=== PATIENT | female | born 1935 | race Asian ===

== ENCOUNTER 2016-06-30 12:27 | Inpatient (IN) | payer MEDICARE ==
[~2016-06-30] VITALS: Ht 154.9 cm; Wt 90.7 kg
[~2016-06-30 12:27] MED LIST: NORCO 5-325 TA1 EACH ORAL
[2016-06-30 12:30] VITALS: BP 187/72
[2016-06-30] MEDS ORDERED: LORazepam Inj 2mg/ml 1ml IV ONE (12:45)
[2016-06-30] MEDS ORDERED: Famotidine 20 MG/ 2ML VIAL IVP ONE (12:45)
[2016-06-30 13:02] LABS: BASOPHILS % (AUTO) 0.8 % (0.0-2.0); EOSINOPHILS % (AUTO) 1.8 % (0.0-3.0); LYMPHOCYTES % (AUTO) 29.7 % (20.0-45.0); MEAN CORPUSCULAR HGB CONC 32.2 G/DL (32.0-36.0); MEAN CORPUSCULAR VOLUME 96 FL (80-99); MEAN PLATELET VOLUME 6.9 FL (6.5-10.1); MONOCYTES % (AUTO) 6.8 % (1.0-10.0); NEUTROPHILS % (AUTO) 60.9 % (45.0-75.0); PLATELET COUNT 174 K/UL (150-450); RED BLOOD COUNT 4.23 M/UL (4.20-5.40); RED CELL DISTRIBUTION WIDTH 12.1 % (11.6-14.8); WHITE BLOOD COUNT 8.5 K/UL (4.8-10.8)
[2016-06-30 13:16] LABS: ALANINE AMINOTRANSFERASE 24 U/L (3-33); ALBUMIN/GLOBULIN RATIO 1.8 (1.0-2.7); ANION GAP 15 (5-15); ASPARTATE AMINO TRANSFERASE 34 U/L (5-40); CALCIUM 9.7 mg/dL (8.6-10.2); CARBON DIOXIDE 27 mEQ/L (20-30); CHLORIDE 99 mEQ/L (98-107); CREATININE 1.1 mg/dL (0.5-0.9); HEMOLYSIS 19; POTASSIUM 3.7 mEQ/L (3.4-4.9); SODIUM 141 mEQ/L (135-145); TOTAL PROTEIN 6.8 g/dL (6.6-8.7); TROPONIN I < 0.30 ng/mL (<=0.30)
[2016-06-30 13:17] LABS: INR 0.9 (0.9-1.1); PROTHROMBIN TIME 9.5 SEC (9.30-11.50)
[2016-06-30 13:30] VITALS: BP 170/76
--- NOTE | 2016-06-30 14:00 | Diagnostic Imaging Report ---
Indication: Headache Technique: Contiguous 5 mm thick transaxial imaging of the head obtained in a Siemens Sensation [address] scanner. Soft tissue and bone windows generated. Total Dose length Product (DLP): [address] Dose Index Volume (CTDIvol): 70.38 mGy Comparison: none Findings: There is mild prominence of the ventricles, basal cisterns, and cerebral sulci consistent with atrophy. Mild, nonspecific, white matter hypoattenuation is noted throughout the brain consistent with chronic small vessel disease. There is no midline shift, edema, acute hemorrhage, mass effect, or abnormal extra-axial fluid collections. Bones and extra osseous soft tissues are unremarkable. Impression: No acute intracranial bleed, mass effect or edema. Mild atrophy of the brain. Nonspecific white matter hypoattenuation probably due to chronic small vessel disease. The CT scanner at [facility] is accredited by the [employer] and the scans are performed using protocols designed to limit radiation exposure to as low as reasonably achievable to attain images of sufficient resolution adequate for diagnostic evaluation.
[2016-06-30 14:30] VITALS: BP 186/80
--- NOTE | 2016-06-30 15:01 | Diagnostic Imaging Report ---
Indication: Chest Pain Comparison: None A single view chest radiograph was obtained. Findings: No definite infiltrate or pulmonary vascular congestion identified. The heart is enlarged. The aorta is mildly enlarged consistent with atherosclerotic vascular disease. The bones are osteopenic. Impression: No acute disease
[2016-06-30 15:23] LABS: APPEARANCE,URINE SLIGHTLY CLOUDY; KETONES,URINE NEGATIVE (NEGATIVE); LEUKOCYTE ESTERASE ,URINE 3+ (NEGATIVE); NITRITE,URINE POSITIVE (NEGATIVE); PH,URINE 8 (4.5-8.0); PROTEIN,URINE 1+ (NEGATIVE); UROBILINOGEN,URINE NORMAL MG/DL (0.0-1.0)
[2016-06-30 15:30] VITALS: BP 156/67
--- NOTE | 2016-06-30 15:36 | Emergency Room Report ---
History of Present Illness General Chief Complaint: Syncope Source: Patient, Family Member, EMS Present Illness HPI The patient presents with near syncope. She complains to our nurses of dizziness and nausea with almost passing out. Her son was there and states that she didn't pass out completely. She did have a falling episode recently and fractured her left arm is also some bruising to her left face - not syncopal and recalled tripping. Uncertain as to what the cause of that fall was about. She complains about feeling that she is about to pass out also that she's dizzy. No headache. Unable to keep down water or meds. The feeling has made her anxious. She had glaucoma surgery at [facility] yesterday and had BP that was out of control. No abdominal pain, dysuria, chest pain, palpitations diarrhea. Allergies: Coded Allergies: No Known Allergies (Unverified , 07/05/13) Patient History Past Medical History: see triage record Past Surgical History: other - glaucoma surgery Social History: Denies: smoking Social History Narrative at home with family Reviewed Nursing Documentation: PMH: Agreed, PSxH: Agreed Nursing Documentation-PMH Past Medical History: No History, Except For Hx Hypertension: Yes Hx Pacemaker: No - GLAUCOMA Review of Systems All Other Systems: negative except mentioned in HPI Physical Exam Vital Signs Date Time Temp Pulse Resp B/P Pulse Ox O2 Delivery O2 Flow Rate FiO2 06/30/16 12:26 97.5 59 20 171/101 95 Room Air Sp02 EP Interpretation: reviewed, normal General Appearance: well appearing, GCS 15, mild distress Head: normocephalic, other - old bruise L face Eyes: bilateral eye PERRL, bilateral eye abnormal EOM - nystagmus, bilateral eye normal inspection ENT: moist mucus membranes Neck: supple Respiratory: lungs clear, normal breath sounds Cardiovascular #1: regular rate, rhythm Cardiovascular #2: 2+ radial (R) Gastrointestinal: normal inspection, normal bowel sounds, non tender, no mass, non-distended Musculoskeletal: back normal, normal range of motion - cast on L arm Neurologic: alert, oriented x3, running specialist III-XII nml as tested - normal except for nystagmus, motor strength/tone normal, DTRs symmetric, sensory intact, speech normal, other - nystagmus Psychiatric: anxious Skin: warm/dry, other - ecchymoses L face Medical Decision Making Diagnostic Impression: Primary Impression: Near syncope Additional Impressions: Hypertension Qualified Codes: I10 - Essential (primary) hypertension Possible adverse reaction to anesthesia UTI (urinary tract infection) Qualified Codes: N30.00 - Acute cystitis without hematuria ER Course Patient presents after near syncope. She's been complaining about dizziness and nausea at the moment. Differential includes arrhythmia, acute myocardial infarction, electrolyte abnormalities, medication reaction, vertigo, labyrinthitis amongst others. Of concern in that possibly could be a posterior fossa syndrome. Patient had a recent fall with evidence of facial trauma and a fracture of her left arm. Evaluation of the EKG, lytes, CT and a chest x-ray. The patient will be treated with Ativan and Zofran at the moment. CT unremarkable, EKG normal, labs remarkable for some renal insufficiency and UTI. The patient is improved after treatment but still feels dizzy when she opens her eyes. Because he with near syncope and because of her age she needs to be observed on a telemetry monitor. The patient be admitted to telemetry here Dr. Pena. Treated with hydralazine. Improved and BP better. Dr. Akhtar here and evaluated patient. Laboratory Tests Test 06/30/16 12:55 06/30/16 15:05 White Blood Count 8.5 K/UL (4.8-10.8) Red Blood Count 4.23 M/UL (4.20-5.40) Hemoglobin 13.1 G/DL (12.0-16.0) Hematocrit 40.6 % (37.0-47.0) Mean Corpuscular Volume 96 FL (80-99) Mean Corpuscular Hemoglobin 31.0 PG (27.0-31.0) Mean Corpuscular Hemoglobin Concent 32.2 G/DL (32.0-36.0) Red Cell Distribution Width 12.1 % (11.6-14.8) Platelet Count 174 K/UL (150-450) Mean Platelet Volume 6.9 FL (6.5-10.1) Neutrophils (%) (Auto) 60.9 % (45.0-75.0) Lymphocytes (%) (Auto) 29.7 % (20.0-45.0) Monocytes (%) (Auto) 6.8 % (1.0-10.0) Eosinophils (%) (Auto) 1.8 % (0.0-3.0) Basophils (%) (Auto) 0.8 % (0.0-2.0) Prothrombin Time 9.5 SEC (9.30-11.50) Prothrombin Time INR 0.9 (0.9-1.1) PTT 19 SEC (23-33) L Sodium Level 141 mEQ/L (135-145) Potassium Level 3.7 mEQ/L (3.4-4.9) Chloride Level 99 mEQ/L (98-107) Carbon Dioxide Level 27 mEQ/L (20-30) Anion Gap 15 (5-15) Blood Urea Nitrogen 26 mg/dL (7-23) H Creatinine 1.1 mg/dL (0.5-0.9) H Estimate Glomerular Filtration Rate mL/min (>60) Glucose Level 118 mg/dL (74-106) H Calcium Level 9.7 mg/dL (8.6-10.2) Total Bilirubin 0.5 mg/dL (0.0-1.2) Aspartate Amino Transferase (AST) 34 U/L (5-40) Alanine Aminotransferase (ALT) 24 U/L (3-33) Alkaline Phosphatase 56 U/L (35-104) Total Creatine Kinase 125 U/L (26-140) Troponin I < 0.30 ng/mL (<=0.30) Pro-B-Type Natriuretic Peptide 155 pg/mL (0-450) Total Protein 6.8 g/dL (6.6-8.7) Albumin 4.4 g/dL (3.5-5.2) Globulin 2.4 g/dL Albumin/Globulin Ratio 1.8 (1.0-2.7) Urine Color Pale yellow Urine Appearance Slightly cloudy Urine pH 8 (4.5-8.0) Urine Specific [place] 1.010 (1.005-1.035) Urine Protein 1+ (NEGATIVE) H Urine Glucose (UA) Negative (NEGATIVE) Urine Ketones Negative (NEGATIVE) Urine Occult Blood 2+ (NEGATIVE) H Urine Nitrite Positive (NEGATIVE) H Urine Bilirubin Negative (NEGATIVE) Urine Urobilinogen Normal MG/DL (0.0-1.0) Urine Leukocyte Esterase 3+ (NEGATIVE) H Urine RBC 5-10 /HPF (0 - 2) H Urine WBC 15-20 /HPF (0 - 2) H Urine Squamous Epithelial Cells Occasional /LPF Urine Amorphous Sediment Few /LPF (NONE) H Urine Bacteria Moderate /HPF (NONE) H EKG Diagnostic Results Rate: bradycardiac ST Segments: no acute changes Rhythm Strip Diag. Results EP Interpretation: yes Rhythm: no PVC's, no ectopy, other - nani Chest X-Ray Diagnostic Results EP Interpretation: Yes Findings: no consolidation, no effusion, no pneumothorax, no acute cardiopulmonary disease Number of Views: 1 CT/MRI/US Diagnostic Results CT/MRI/US Diagnostic Results : Imaging Test Ordered: head Impression age related changes Last Vital Signs Date Time Temp Pulse Resp B/P Pulse Ox O2 Delivery O2 Flow Rate FiO2 06/30/16 14:56 191/91 06/30/16 12:30 98.0 64 16 98 Room Air Status: improved Disposition: ADMITTED INPATIENT Condition: Serious Referrals: NON PHYSICIAN (PCP) Ryan Castillo M.D. June 30, 2016 15:35
[2016-06-30 15:43] LABS: AMORPHOUS SEDIMENT,UR FEW /LPF; BACTERIA,URINE MODERATE /HPF; SQUAMOUS EPITHELIAL CELL,UR OCCASIONAL /LPF (NONE/OCC); WBC,URINE 15-20 /HPF (0 - 2)
--- NOTE | 2016-06-30 16:11 | Cardiac Electrophysiology PN ---
Subjective Subjective [id number] Objective Last 24 Hour Vital Signs Date Time Temp Pulse Resp B/P Pulse Ox O2 Delivery O2 Flow Rate FiO2 06/30/16 15:30 98.3 79 14 156/67 98 Room Air 06/30/16 14:56 191/91 06/30/16 14:30 98.1 65 13 186/80 98 Room Air 06/30/16 13:30 98.2 62 12 170/76 97 Room Air 06/30/16 12:30 98.0 64 16 187/72 98 Room Air 06/30/16 12:26 97.5 59 20 171/101 95 Room Air Laboratory Tests Test 06/30/16 12:55 06/30/16 15:05 White Blood Count 8.5 K/UL (4.8-10.8) Red Blood Count 4.23 M/UL (4.20-5.40) Hemoglobin 13.1 G/DL (12.0-16.0) Hematocrit 40.6 % (37.0-47.0) Mean Corpuscular Volume 96 FL (80-99) Mean Corpuscular Hemoglobin 31.0 PG (27.0-31.0) Mean Corpuscular Hemoglobin Concent 32.2 G/DL (32.0-36.0) Red Cell Distribution Width 12.1 % (11.6-14.8) Platelet Count 174 K/UL (150-450) Mean Platelet Volume 6.9 FL (6.5-10.1) Neutrophils (%) (Auto) 60.9 % (45.0-75.0) Lymphocytes (%) (Auto) 29.7 % (20.0-45.0) Monocytes (%) (Auto) 6.8 % (1.0-10.0) Eosinophils (%) (Auto) 1.8 % (0.0-3.0) Basophils (%) (Auto) 0.8 % (0.0-2.0) Prothrombin Time 9.5 SEC (9.30-11.50) Prothromb Time International Ratio 0.9 (0.9-1.1) Activated Partial Thromboplast Time 19 SEC (23-33) L Sodium Level 141 mEQ/L (135-145) Potassium Level 3.7 mEQ/L (3.4-4.9) Chloride Level 99 mEQ/L (98-107) Carbon Dioxide Level 27 mEQ/L (20-30) Anion Gap 15 (5-15) Blood Urea Nitrogen 26 mg/dL (7-23) H Creatinine 1.1 mg/dL (0.5-0.9) H Estimat Glomerular Filtration Rate mL/min (>60) Glucose Level 118 mg/dL (74-106) H Calcium Level 9.7 mg/dL (8.6-10.2) Total Bilirubin 0.5 mg/dL (0.0-1.2) Aspartate Amino Transf (AST/SGOT) 34 U/L (5-40) Alanine Aminotransferase (ALT/SGPT) 24 U/L (3-33) Alkaline Phosphatase 56 U/L (35-104) Total Creatine Kinase 125 U/L (26-140) Troponin I < 0.30 ng/mL (<=0.30) Pro-B-Type Natriuretic Peptide 155 pg/mL (0-450) Total Protein 6.8 g/dL (6.6-8.7) Albumin 4.4 g/dL (3.5-5.2) Globulin 2.4 g/dL Albumin/Globulin Ratio 1.8 (1.0-2.7) Urine Color Pale yellow Urine Appearance Slightly cloudy Urine pH 8 (4.5-8.0) Urine Specific [place] 1.010 (1.005-1.035) Urine Protein 1+ (NEGATIVE) H Urine Glucose (UA) Negative (NEGATIVE) Urine Ketones Negative (NEGATIVE) Urine Occult Blood 2+ (NEGATIVE) H Urine Nitrite Positive (NEGATIVE) H Urine Bilirubin Negative (NEGATIVE) Urine Urobilinogen Normal MG/DL (0.0-1.0) Urine Leukocyte Esterase 3+ (NEGATIVE) H Urine RBC 5-10 /HPF (0 - 2) H Urine WBC 15-20 /HPF (0 - 2) H Urine Squamous Epithelial Cells Occasional /LPF Urine Amorphous Sediment Few /LPF (NONE) H Urine Bacteria Moderate /HPF (NONE) H EKTA HOWARD June 30, 2016 16:11
[2016-06-30] MEDS ORDERED: ATORVASTATIN CA40 MG ORAL (16:25)
[2016-06-30] MEDS ORDERED: LOSARTAN-HCTZ1 EACH ORAL (16:25)
[2016-06-30 17:58] VITALS: BP 173/86
[2016-06-30] MEDS ORDERED: Lisinopril 20mg tab ORAL SCH (18:00)
[2016-06-30] MEDS ORDERED: PREDNISOLONE ACE5 ML LEFT EYE (19:42)
[2016-06-30] MEDS ORDERED: TRAVATAN Z5 ML RIGHT EYE (19:44)
[2016-06-30] MEDS ORDERED: COSOPT1 DRO2 RIGHT EAR (19:50)
[2016-06-30] MEDS ORDERED: ALPHAGAN P5 M2 RIGHT EYE (19:50)
[2016-06-30 20:00] VITALS: BP 129/66
[2016-06-30] MEDS ORDERED: OFLOXACIN10 ML LEFT EYE (21:49)
[2016-06-30] MEDS ORDERED: Cosopt Opth Soln 10 mL Btl RIGHT EYE SCH (22:00)
[2016-06-30] MEDS ORDERED: Pred Forte 1% Opth Susp 1ml LEFT EYE SCH (22:00)
[2016-06-30] MEDS ORDERED: Brimonidine 0.2% Opth Sol RIGHT EYE SCH (22:00)
[2016-07-01] MEDS ORDERED: Losartan 50mg tab ORAL SCH (09:00)
--- NOTE | 2016-07-01 14:58 | Consultation ---
DATE OF CONSULTATION: CARDIOLOGY CONSULTATION CONSULTING PHYSICIAN: Jordan Oropeza M.D. REFERRING PHYSICIAN: Wilian Pena M.D. REASON FOR CONSULTATION: hypertension, and near syncope. HISTORY OF PRESENT ILLNESS: The patient is a very pleasant 80-year-old [place] lady with history of hypertension, hyperlipidemia, who has history of a fall left ulnar fracture. She is currently in the cast. The patient also had cataract surgery yesterday at [facility]. Per daughter at [facility], the patient's blood pressure was 220, I gave her some blood pressure medication. The patient presented to the emergency room with dizziness and nausea and almost passing out. The patient did not completely lose consciousness even though has had a recent fall resulting in fracture of left arm and bruising of the left face. It is not clear what is the cause of the patient's fall versus syncope was. In the emergency room, the patient's blood pressure was as high as 210. The patient received 10 mg of IV hydralazine. At the time of my evaluation, the patient in the emergency room with daughter at the bedside translating and she denies any chest pain or shortness of breath. REVIEW OF SYSTEMS: Negative other than what was mentioned in the history of present illness. PAST MEDICAL HISTORY: 1. Hypertension. 2. Hyperlipidemia. 3. Glaucoma. 4. Status post multiple falls. SOCIAL HISTORY: She lives at home. Does not smoke or drink alcohol. PHYSICAL EXAMINATION: VITAL SIGNS: Blood pressure 171/101, pulse is 59, respirations 20, and temperature 97.5 degrees. HEAD AND NECK: She has no JVD. She has bruising around the left eye LUNGS: Clear. CARDIOVASCULAR: Shows regular S1 and S2 with no gallop or murmur. Mildly bradycardic. ABDOMEN: Soft. EXTREMITIES: Left arm is in the cast. LABORATORY AND DIAGNOSTIC DATA: EKG shows sinus bradycardia with a rate of [address] abnormalities. Labs show white count of 8.5, hemoglobin 13, hematocrit 40, and platelet of 174,000. Sodium 141, potassium 3.7, BUN of 26, creatinine 1.1, and glucose of 118. Troponin is negative. INR is 0.9. Urinalysis 15 to 20. WBC 3+ leukocyte esterase, and nitrite is positive. ASSESSMENT AND PLAN: 1. Accelerated hypertension with a blood pressure in 200s and dizziness and nausea. We will start the patient on lisinopril 20 mg b.i.d. p.r.n. to her medical regimen. We will get an echocardiogram to evaluate for ejection fraction and wall motion abnormality. 2. Presyncope versus syncope and fall resulting in arm fracture. The patient was watched on telemetry, get an echocardiogram to evaluate for ejection fraction and wall motion abnormality. We will completely rule out myocardial infarction protocol. 3. Nonspecific ST wave abnormalities, completely rule out myocardial infarction protocol. 4. Hyperlipidemia, on Lipitor. 5. Status post cataract surgery. Thank very much, Dr. Pena, for allowing me to participate in the care of this patient. Please do not hesitate to contact me for any questions regarding my evaluation. Jordan Oropeza M.D. DR: Rahel JOB#: [id number] CC:
--- NOTE | 2016-07-01 20:08 | Discharge Summary ---
Discharge Summary Hospital Course Date of Admission June 30, 2016 at 13:17 Date of Discharge June 30, 2016 at 23:30 Admitting Diagnosis near syncope HPI Melissa Abraham is a 80 year old female who was admitted on June 30, 2016 at 13:17 for Near Syncope Hospital Course [id number] Discharge Discharge Disposition Patient was discharged to home Discharge Diagnoses: Serenity Villalpando NP July 01, 2016 20:08
--- NOTE | 2016-07-02 08:38 | Cardiology Report ---
APPROVED REPORT EKG Measurement Heart [id number] Sinus bradycardia Nonspecific ST abnormality Abnormal ECG
--- NOTE | 2016-07-02 15:08 | Diagnostic Imaging Report ---
APPROVED REPORT CPT Code: 84159 Vascular Symptoms Syncope Comments: Pacemaker Risk Factors Hypertension: Cardiac Doppler Spectral Velocity Analysis RightLeft dICA69/21 cm/sdICA92/27 cm/s mICA44/14 cm/smICA92/28 cm/s pICA42/13 cm/spICA56/16 cm/s ECA72/8 cm/sECA97/9 cm/s dCCA64/15 cm/sdCCA56/10 cm/s pCCA84/13 cm/spCCA68/12 cm/s Vert.53/13 cm/sVert.43/14 cm/s Right ICA/CCA ratio0.8Left ICA/CCA ratio1.4 RIGHT SIDE: CCA/BULB - Imaging reveals significant, soft, floating plaque in the distal in the internal and external carotid arteries. VERTEBRAL - The vertebral artery is patent, without evidence of stenosis or steal. LEFT SIDE: CCA/BULB - Imaging reveals irregular, minimal plaque in the common carotid internal and external carotid arteries. ICA mid to distal velocities are suggestive of minimal (10 % - 20 %) distal stenosis. VERTEBRAL - The vertebral artery is patent, without evidence of stenosis or steal. SUSHMA Araiza was informed of abnormal results at 22:15 hrs.
--- NOTE | 2016-07-03 18:38 | Discharge Summary 2 SIG ---
DATE OF ADMISSION: 06/30/2016 DATE OF DISCHARGE: 06/30/2016 HYPOID GEAR GENERATOR: Jordan Oropeza M.D. BRIEF HOSPITAL COURSE: The patient is an 80-year-old female, who presented to ED for near syncope. The patient had a recent fracture on the left arm and with some bruising on the face, currently on arm cast, uncertain of what the cause of the fall was. The patient also had glaucoma surgery done at [facility]. The patient was noted to have high blood pressure and was taken to ED. The patient was admitted to telemetry. CT of the head showed age-related changes. Chest x-ray showed no consolidation, no effusion, and no pneumothorax with no acute cardiopulmonary disease. EKG showed bradycardia. The patient was started on lisinopril 20 mg b.i.d. Carotid ultrasound showed a floating plaque in the right distal common carotid artery and carotid bulb. Left side showed irregular plaques in the common carotid artery. The patient was given Lipitor and was discharged home and advised to follow up with PMD. FINAL DIAGNOSES: 1. Accelerated hypertension. 2. Presyncope and fall resulting in arm fracture. 3. Hyperlipidemia. 4. Recent cataract surgery. Wilian Pena M.D. I have been assigned to dictate discharge summary on this account and I was not involved in the patient's management. Serenity Villalpando N.P. DR: Valdemar JOB#: [id number] CC:
== END 2016-06-30 23:30 | disposition home or self-care (01) | DRG 149 ==
LOC: EDBD 12:27 → EMR 13:07 → EDUNIT# 13:07 → 2E 13:17 → EDBEDREQ 15:59
DX: R42 Dizziness and giddiness (principal); R00.1 Bradycardia, unspecified; I10 Essential (primary) hypertension; R55 Syncope and collapse; Z91.81 History of falling; H40.9 Unspecified glaucoma; E78.5 Hyperlipidemia, unspecified; S52.202D Unspecified fracture of shaft of left ulna, subsequent encounter for closed fracture with routine healing
CPT/HCPCS: 36415; 70450; 71010; 80053; 81003; 82550; 83880; 84484; 85025; 85610; 85730; 87086; 87181; 93005; 93880; J2405